=== PATIENT | male | born 2000 | race Caucasian/White ===

== ENCOUNTER 2020-07-04 09:12 | Emergency (ER) | payer BC ==
[~2020-07-04] VITALS: Ht 188 cm; Wt 77.3 kg
[2020-07-04 09:18] VITALS: BP 126/82; TEMP 98.2
[2020-07-04 10:15] VITALS: PULSE 77
== END 2020-07-04 10:15 | disposition home or self-care (01) ==
LOC: COL.ER 09:12
DX: S93.601A Unspecified sprain of right foot, initial encounter (principal); X50.1XXA Overexertion from prolonged static or awkward postures, initial encounter; Y93.02 Activity, running; Y92.410 Unspecified street and highway as the place of occurrence of the external cause